=== PATIENT | female | born 2000 | race Caucasian/White ===

== ENCOUNTER 2020-05-03 14:45 | Emergency (ER) | payer OTHER ==
[~2020-05-03] VITALS: Ht 182.9 cm; Wt 113.4 kg
[2020-05-03] MEDS ORDERED: CODACE30 PO (16:42)
[2020-05-03] MEDS ORDERED: TAPAZOLE10 MG PO (16:45)
[2020-05-03] MEDS ORDERED: ATEN25 PO (16:45)
== END 2020-05-03 16:57 | disposition home or self-care (01) ==
LOC: ER 14:45
DX: R07.89 Other chest pain (principal); E03.9 Hypothyroidism, unspecified; Z88.6 Allergy status to analgesic agent; Z79.899 Other long term (current) drug therapy
CPT/HCPCS: 71101; 99283-25

== ENCOUNTER → 2020-06-19 | Outpatient (CLI) | payer SELFPAY ==
[~2020-06-19] MED LIST: ATEN25 PO; CODACE30 PO; TAPAZOLE10 MG PO
== END | disposition home or self-care (01) ==
LOC: LAB 10:00 → LAB SHORT 10:00
DX: J02.9 Acute pharyngitis, unspecified (principal)
CPT/HCPCS: 87081